=== PATIENT | female | born 2000 | race Two or more races ===

== ENCOUNTER 2020-09-05 13:27 | Emergency (ER) | payer OTHER ==
[~2020-09-05] VITALS: Ht 154.9 cm; Wt 60.7 kg
[2020-09-05 14:17] LABS: BASO % 0.6 % (0.0-1.0); EOS # 1.1 10^3/uL (0.0-0.5); EOS % 15.8 % (0.0-3.0); HEMATOCRIT 39.3 % (36.0-47.0); HEMOGLOBIN 11.8 g/dl (12.0-15.5); LYMPH # 2.5 10^3/uL (1.5-5.0); LYMPH % 35.2 % (24.0-44.0); MEAN CORPUSCULAR HEMOGLOBIN 23.3 pg (27.0-33.0); MEAN CORPUSCULAR VOLUME 77.7 fl (80.0-96.0); MONO # 0.5 10^3/uL (0.0-0.8); MONO % 7.2 % (2.0-8.0); NEUTROPHILS # 2.9 10^3/uL (1.5-8.5); NEUTROPHILS % 41.1 % (36.0-66.0); PLATELET COUNT, AUTOMATED 288 10^3/uL (150-450); RED BLOOD COUNT 5.06 10^6/uL (4.00-5.40)
[2020-09-05 14:45] LABS: BILIRUBIN,DIRECT 0.2 MG/DL (0.0-0.2); BILIRUBIN,TOTAL 0.4 MG/DL (0.2-1.0); TOTAL PROTEIN 7.6 GM/DL (6.4-8.2)
[2020-09-05] MEDS ORDERED: ISOVUE-370 76% 100ML VIAL As Ordered ONE (15:58)
--- NOTE | 2020-09-05 16:22 | REP ---
INDICATION: rlq pain ? cyst. COMPARISON: None TECHNIQUE: Transvesical only patient refused transvaginal imaging FINDINGS: Uterus measures 8.2 x 3.7 x 5.2 cm. The parenchymal echo pattern is within normal limits. The endometrial echo complex measures 1.5 cm in thickness and is within normal limits. There is no free fluid in cul-de-sac. The right ovary measures 4 x 2.1 x 4.3 cm and is within normal limits. Left ovary measures 3.9 x 1.9 x 2.8 cm and is within normal limits. IMPRESSION: Pelvic ultrasonography is within normal limits. <Electronically signed by Ernie Wang > 09/05/20 [id number]
--- NOTE | 2020-09-05 16:28 | REP ---
INDICATION: rlq pain. TECHNIQUE: Standard helical technique after the intravenous administration of 100 cc Isovue 370 FINDINGS: The lung bases are clear. The liver, gallbladder, spleen, pancreas, adrenal glands, and kidneys are within normal limits. The abdominal aorta and para-aortic regions are within normal limits. Limited evaluation of the bowel loops and the mesenteries show no gross abnormalities. The appendix is not definitely visualized, however, there is no abnormal pericecal fatty infiltration or fluid. There is a small amount of free fluid in the pelvis. In the right adnexa there is a wall enhancing slightly irregular low-density structure with fluid surrounding it. This likely represents a decompressing ovarian cyst. The osseous structures are within normal limits. IMPRESSION: Likely decompressing right ovarian cyst as described above with resultant findings. If this does not fit the clinical picture and appendicitis is of of greater concern then I would recommend repeat CT scan after the administration of oral bowel preparatory contrast administration. <Electronically signed by Ernie Wang > 09/05/20 [id number]
[2020-09-05 17:36] VITALS: BP 120/68
--- NOTE | 2020-09-06 14:27 | ED PDOC ---
Post-Departure Follow-Up ct abd/p faxed to [facility] for fu Gordy Hull MD September 06, 2020 14:27
== END 2020-09-05 17:38 | disposition home or self-care (01) ==
LOC: M ED 13:27
DX: N83.201 Unspecified ovarian cyst, right side (principal)
CPT/HCPCS: 36415; 74177; 76856; 80047; 80076; 81001; 83690; 84702; 85025; 93976; 99284; Q9967

== ENCOUNTER 2020-09-08 20:30 | Emergency (ER) | payer OTHER ==
[~2020-09-08] VITALS: Ht 154.9 cm; Wt 60.2 kg
[2020-09-08] MEDS ORDERED: NS 1,000 ML IV ONE (23:00)
[2020-09-08 23:10] LABS: BASO % 0.4 % (0.0-1.0); EOS # 1.3 10^3/uL (0.0-0.5); EOS % 14.6 % (0.0-3.0); HEMATOCRIT 32.8 % (36.0-47.0); LYMPH # 3.5 10^3/uL (1.5-5.0); LYMPH % 38.8 % (24.0-44.0); MEAN CORPUSCULAR HEMOGLOBIN 23.3 pg (27.0-33.0); MEAN CORPUSCULAR HGB CONC 30.5 g/dl (32.0-36.5); MEAN CORPUSCULAR VOLUME 76.5 fl (80.0-96.0); MONO # 0.6 10^3/uL (0.0-0.8); MONO % 6.5 % (2.0-8.0); NEUTROPHILS # 3.6 10^3/uL (1.5-8.5); NEUTROPHILS % 39.5 % (36.0-66.0); PLATELET COUNT, AUTOMATED 257 10^3/uL (150-450); RED BLOOD COUNT 4.29 10^6/uL (4.00-5.40); WHITE BLOOD COUNT 9.1 10^3/uL (4.0-10.0)
[2020-09-08] MEDS ORDERED: ISOVUE-370 76% 100ML VIAL As Ordered ONE (23:25)
[2020-09-09 00:48] VITALS: BP 99/52
== END 2020-09-09 01:02 | disposition home or self-care (01) ==
LOC: M ED 20:30
DX: Z32.01 Encounter for pregnancy test, result positive (principal); R10.31 Right lower quadrant pain
CPT/HCPCS: 80047; 84702; 85025; 96360; 99284; Q9967

== ENCOUNTER 2020-09-20 01:24 | Emergency (ER) | payer OTHER ==
[~2020-09-20] VITALS: Ht 154.9 cm; Wt 60.1 kg
[2020-09-20 01:25] VITALS: BP 126/81
[2020-09-20] MEDS ORDERED: MEDR4PAK PO (12:32)
[2020-09-20] MEDS ORDERED: ZITHTAB PO (12:32)
[2020-09-20] MEDS ORDERED: ALBU8.5H INH (12:32)
== END 2020-09-20 01:45 | disposition left against medical advice (07) ==
LOC: M ED 01:24
DX: Z53.21 Procedure and treatment not carried out due to patient leaving prior to being seen by health care provider (principal)

== ENCOUNTER 2020-09-20 03:55 | Emergency (ER) | payer OTHER ==
[~2020-09-20] VITALS: Ht 154.9 cm; Wt 60.0 kg
[2020-09-20] MEDS ORDERED: predniSONE 20 MG TAB PO ONE (06:10)
[2020-09-20] MEDS: IPRATROPIUM 0.5MG/ALBUTEROL 2.5MG INH SOL UD 3ML (DUONEB) NEB PRN ×3 (06:26→07:45)
[2020-09-20 06:39] LABS: BASO % 0.2 % (0.0-1.0); EOS # 0.6 10^3/uL (0.0-0.5); EOS % 5.2 % (0.0-3.0); HEMATOCRIT 39.5 % (36.0-47.0); HEMOGLOBIN 12.1 g/dl (12.0-15.5); LYMPH # 1.4 10^3/uL (1.5-5.0); LYMPH % 13.1 % (24.0-44.0); MEAN CORPUSCULAR HEMOGLOBIN 24.1 pg (27.0-33.0); MEAN CORPUSCULAR HGB CONC 30.6 g/dl (32.0-36.5); MEAN CORPUSCULAR VOLUME 78.7 fl (80.0-96.0); MONO # 0.7 10^3/uL (0.0-0.8); MONO % 6.8 % (2.0-8.0); NEUTROPHILS % 74.2 % (36.0-66.0); PLATELET COUNT, AUTOMATED 311 10^3/uL (150-450); RED BLOOD COUNT 5.02 10^6/uL (4.00-5.40); WHITE BLOOD COUNT 10.7 10^3/uL (4.0-10.0)
[2020-09-20 07:17] LABS: ALT/SGPT 22 U/L (12-78); BILIRUBIN,TOTAL 0.5 MG/DL (0.2-1.0); BLOOD UREA NITROGEN 6 MG/DL (7-18); CALCIUM LEVEL 8.7 MG/DL (8.5-10.1); CARBON DIOXIDE LEVEL 24 MEQ/L (21-32); CHLORIDE LEVEL 102 MEQ/L (98-107); CREATININE FOR GFR 0.56 MG/DL (0.55-1.30); GLUCOSE, FASTING 92 MG/DL (70-100); POTASSIUM SERUM 4.7 MEQ/L (3.5-5.1); SODIUM LEVEL 134 MEQ/L (136-145); TOTAL PROTEIN 7.7 GM/DL (6.4-8.2)
[2020-09-20 08:59] LABS: RSV AMPLIFICATION NEGATIVE (NEGATIVE)
--- NOTE | 2020-09-20 10:26 | REP ---
INDICATION: SOB, 6 wks preg. COMPARISON: None. TECHNIQUE: Transabdominal and transvaginal scanning are included. FINDINGS: Uterine dimensions are 6.7 x 4.2 x 5.4 cm, normal size. There is a intrauterine gestational sac seen at the level of the mid uterus in the endometrium with the yolk sac but no embryonic pole identified. By mean sac size diameter of 4.9 mm, this would correspond with a 5 week 0 day gestational age estimate. There is a minimal amount of fluid in the cul-de-sac. Normal left ovary is seen measuring 2.9 x 2.0 x 3.0 cm. Left ovarian Doppler flow is normal, resistive index is 0.48. There is a 2.0 cm hypoechoic area in the right ovary consistent with corpus luteum. Right ovarian dimensions are 3.3 x 2.1 x 3.2 cm. It is Doppler flow is normal with resistive index 0.50. IMPRESSION: There is a 5 weeks 0 days size intrauterine gestational sac containing a yolk sac but no identifiable embryonic pole. No significant extra uterine abnormality. Clinical and possibly sonographic follow-up suggested. viability cannot be confirmed at this juncture. <Electronically signed by Yohannes Velasquez > 09/20/20 0136
[2020-09-20] MEDS ORDERED: ISOVUE-370 76% 100ML VIAL As Ordered ONE (11:00)
[2020-09-20] MEDS ORDERED: NS 1,000 ML IV ONE (11:10)
--- NOTE | 2020-09-20 11:29 | REP ---
INDICATION: Tachycardia, SOB, elev d-dimer, eval for PE (consented, 6wks COMPARISON: None. TECHNIQUE: Axial contrast enhanced images from the thoracic inlet to the upper abdomen using pulmonary embolus technique with multiplanar re-formations. 75 ml Isovue 370 intravenous contrast material administered without complication. This CT examination was performed using the following dose reduction techniques: Automated exposure control, adjustment of mA and/or kv according to the patient's size, and use of iterative reconstruction technique. FINDINGS: Satisfactory enhancement of the pulmonary vasculature is achieved and no filling defects are identified to suggest pulmonary embolus. Extremely subtle small foci of airspace disease involving the apical aspect right lower lobe is suggested and should be correlated with physical examination. Lung otoole are otherwise clear/unremarkable. No effusion. No pneumothorax. Tracheobronchial tree is patent. No obvious adenopathy. Mediastinum demonstrates normal thoracic aorta and heart/pericardium. IMPRESSION: No evidence for pulmonary embolus. Extremely subtle airspace disease involving the apical right lower lobe should be correlated with physical examination. <Electronically signed by Rolan Teague > 09/20/20 [id number]
[2020-09-20] MEDS ORDERED: ALBUTEROL 90 MCG/ACT 8GM HFA INHALER INH ONE (11:40)
[2020-09-20] MEDS ORDERED: AZITHROMYCIN INJ 500 MG, VIAL MATE ADAPTER 1 EACH in NS 250 ML IV ONE (11:40)
[2020-09-20] MEDS ORDERED: ALBU8.5H INH (12:32)
[2020-09-20] MEDS ORDERED: ZITHTAB PO (12:32)
[2020-09-20] MEDS ORDERED: MEDR4PAK PO (12:32)
[2020-09-20 13:00] VITALS: BP 109/59
== END 2020-09-20 13:18 | disposition home or self-care (01) ==
LOC: M ED 03:55
DX: O99.511 Diseases of the respiratory system complicating pregnancy, first trimester (principal); J98.01 Acute bronchospasm; J18.9 Pneumonia, unspecified organism; Z3A.00 Weeks of gestation of pregnancy not specified; Z79.899 Other long term (current) drug therapy
CPT/HCPCS: 71275; 76801; 76817; 80053; 85025; 85379; 87631; 93976; 94640; 96365; 99284; J0456; J7512; Q9967

== ENCOUNTER 2021-04-07 13:00 | Outpatient (CLI) | payer OTHER ==
[~2021-04-07] VITALS: Ht 154.9 cm; Wt 79.2 kg
[~2021-04-07 13:00] MED LIST: ALBU8.5H INH; MEDR4PAK PO; ZITHTAB PO
[2021-04-07] MEDS ORDERED: PRENTAB9 PO (13:15)
[2021-04-07 13:18] VITALS: BP 139/89
[2021-04-07] MEDS ORDERED: HOME MED LIST COMPLETE! XX SCH (13:20)
[2021-04-07 13:40] VITALS: BP 127/84
[2021-04-07] MEDS ORDERED: FLUCONAZOLE 50MG TABLET PO ONE (14:30)
== END 2021-04-07 14:41 | disposition home or self-care (01) ==
LOC: M LDO 13:00
PROVIDERS: ATTEND Advanced Practice Midwife
DX: O46.93 Antepartum hemorrhage, unspecified, third trimester (principal); O26.893 Other specified pregnancy related conditions, third trimester; N89.8 Other specified noninflammatory disorders of vagina; Z3A.32 32 weeks gestation of pregnancy
CPT/HCPCS: 59025; 76815; G0378; G0463

== ENCOUNTER 2021-04-09 12:43 | Outpatient (CLI) | payer OTHER ==
[~2021-04-09] VITALS: Ht 154.9 cm; Wt 77.7 kg
[~2021-04-09 12:43] MED LIST changes: +PRENTAB9 PO
[2021-04-09 13:05] VITALS: BP 116/70
[2021-04-09] MEDS ORDERED: HOME MED LIST COMPLETE! XX SCH (13:10)
[2021-04-09 15:11] VITALS: BP 118/70
== END 2021-04-09 16:30 | disposition home or self-care (01) ==
LOC: M LDO 12:43
PROVIDERS: ATTEND Registered Nurse
DX: O46.93 Antepartum hemorrhage, unspecified, third trimester (principal); O44.00 Complete placenta previa NOS or without hemorrhage, unspecified trimester; Z3A.34 34 weeks gestation of pregnancy
CPT/HCPCS: 59025; 76815; 76817; 76819; 76820; G0378; G0463

== ENCOUNTER 2021-04-14 00:37 | Outpatient (CLI) | payer OTHER ==
--- NOTE | 2021-04-21 17:26 | IPNPDOC ---
Text Note Date of Service The patient was seen on 04/14/21. NOTE Coco Allred 20yo G1 around 33 weeks presents to labor and delivery for loss of mucous plug. Denies vaginal bleeding, loss of fluid, contractions. Endorses positive movement. Vitals stable and within normal limits. 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 Discussed with patient and spouse, all questions answered and they indicated understanding. Keon Calero, this note was written 2020 and is my best recollection of the events of that visit as the handwritten note from this visit was lost in the scanning process. KEON CALERO DO Apr 21, 2021 17:25
== END 2021-04-14 02:00 | disposition home or self-care (01) ==
LOC: M LDO 00:37
PROVIDERS: ATTEND Obstetrics & Gynecology
DX: O26.893 Other specified pregnancy related conditions, third trimester (principal); N89.8 Other specified noninflammatory disorders of vagina; Z3A.33 33 weeks gestation of pregnancy
CPT/HCPCS: 59025; G0378; G0463

== ENCOUNTER 2021-04-17 10:25 | Inpatient (IN) | payer OTHER ==
[2021-04-17] VITALS (16 sets, daily range): BP systolic 102–124; BP diastolic 61–88
[~2021-04-17] VITALS: Ht 154.9 cm; Wt 78.3 kg
[2021-04-17] MEDS ORDERED: PENICILLIN G POTASSIUM IV 5 MU in D5W MINI-BAG PLUS 100 ML IV STA (12:01)
[2021-04-17] MEDS ORDERED: OXYTOCIN INJ 10 UNITS/ML VIAL (J2590) IV PRN (12:05)
[2021-04-17] MEDS ORDERED: OXYTOCIN DRIP 30 UNITS in IV 1 EA IV PRN (12:05)
[2021-04-17] MEDS ORDERED: METHYLERGONOVINE MALEATE 0.2 MG/ML VIAL (J2210) IM PRN (12:05)
[2021-04-17] MEDS ORDERED: MAGNESIUM *L&D* 4GM/100ML BAG (40MG/ML) IV ONE (12:15)
[2021-04-17] MEDS ORDERED: LACTATED RINGER'S 1000 ML IV ONE (12:30)
[2021-04-17 12:46] LABS: HEMATOCRIT 38.4 % (36.0-47.0); HEMOGLOBIN 12.8 g/dl (12.0-15.5); MEAN CORPUSCULAR HEMOGLOBIN 28.6 pg (27.0-33.0); MEAN CORPUSCULAR HGB CONC 33.3 g/dl (32.0-36.5); MEAN CORPUSCULAR VOLUME 85.7 fl (80.0-96.0); PLATELET COUNT, AUTOMATED 204 10^3/uL (150-450); RED BLOOD COUNT 4.48 10^6/uL (4.00-5.40); WHITE BLOOD COUNT 8.3 10^3/uL (4.0-10.0)
[2021-04-17] MEDS: BETAMETHASONE SOLUSPAN 6MG/ML 5ML VIAL (J0702 PER 3MG) IM SCH (13:23)
[2021-04-17] MEDS: MAG Sulf (OBGYN) 20GM/500ML 20,000 MG in IV 1 EA IV SCH (13:23)
--- NOTE | 2021-04-17 13:26 | REP ---
INDICATION: SROM AT 33.5 WEEKS, WEIGHT POSITION CERVICAL LENGTH COMPARISON: 04/09/2021 TECHNIQUE: Transabdominal obstetrical ultrasound with color Doppler evaluation. FINDINGS: Examination demonstrates a single live intrauterine in cephalic presentation. motion is identified by technologist. Placenta is noted posterior, grade 1 and low lying approximately 17 mm from the closed internal os. Cervix measures 3.1 cm in length and appears closed.. Selected gestational age: 33 weeks 5 days with STACY 05/31/2021. Gestational age by current measurements 31 weeks 5 days with STACY 06/14/2021. FHR equals 133 beats per minute. Estimated weight 1750 grams (less than 3rdpercentile). ARABELLA: 9.9 cm Umbilical artery SD ratio: 3.81 (1.75-3.71) IMPRESSION: 1. Single live intrauterine in cephalic presentation demonstrating less than expected interval growth. 2. Low lying posterior grade 1 placenta 17 mm from the closed internal os. <Electronically signed by Rolan Teague > 04/17/21 [id number]
[2021-04-17] MEDS: PENICILLIN G POTASSIUM IV 2.5 MU in IV 1 EA IV SCH ×2 (16:57→21:05)
--- NOTE | 2021-04-17 21:31 | HPEPDOC ---
Obstetrical History & Physical General Date of Admission Item Value Date Time White Blood Count 8.3 10^3/uL 04/17/21 1230 Red Blood Count 4.48 10^6/uL 04/17/21 1230 Hemoglobin 12.8 g/dl 04/17/21 1230 Hematocrit 38.4 % 04/17/21 1230 Mean Corpuscular Volume 85.7 fl 04/17/21 1230 Mean Corpuscular Hemoglobin 28.6 pg 04/17/21 1230 Mean Corpuscular Hemoglobin Concent 33.3 g/dl 04/17/21 1230 Red Cell Distribution Width 12.2 % 04/17/21 1230 Platelet Count 204 10^3/uL 04/17/21 1230 Apr 17, 2021 at 12:05 NAME: LUL ORDOÑEZ DATE OF : 2000 AGE: 20 SEX: F REPORT #: [id number] ROOM: [facility] TECHNOLOGIST: [facility] DOCTOR: Noah Lomeli MD Ordered for Date&Time: 04/17/21 1212 cc: [~ rep ct ivnm] Service Date&Time: 04/17/21 1259 EXAMINATION REQUESTED: OBS FOLL UP OR REPEAT EACH GES REASON FOR PATIENT VISIT: LABOR CHECK. REASON FOR EXAM/COMMENT: SROM AT 33.5 WEEKS, WEIGHT POSITION CERVICAL LENGTH INDICATION: SROM AT 33.5 WEEKS, WEIGHT POSITION CERVICAL LENGTH COMPARISON: 04/09/2021 TECHNIQUE: Transabdominal obstetrical ultrasound with color Doppler evaluation. FINDINGS: Examination demonstrates a single live intrauterine in cephalic presentation. motion is identified by technologist. Placenta is noted posterior, grade 1 and low lying approximately 17 mm from the closed internal os. Cervix measures 3.1 cm in length and appears closed.. Selected gestational age: 33 weeks 5 days with STACY 05/31/2021. Gestational age by current measurements 31 weeks 5 days with STACY 06/14/2021. FHR equals 133 beats per minute. Estimated weight 1750 grams (less than 3rdpercentile). ARABELLA: 9.9 cm Umbilical artery SD ratio: 3.81 (1.75-3.71) IMPRESSION: 1. Single live intrauterine in cephalic presentation demonstrating less than expected interval growth. 2. Low lying posterior grade 1 placenta 17 mm from the closed internal os. <Electronically signed by Rolan Teague > 04/17/21 1322 DD: Rolan Teague MD 04/17/21 1320 DT: SHIREEN 04/17/21 1322 DS: MERVIN 04/17/21 1320 04/17/21 1320 Primary Care Physician: Noah Lomeli MD History of Present Illness 04/17/21 20 yo admitted with history of srom clear fluid no contractions no vaginal bleeding lmp 08/10/20 [facility]/2021 at 33 .6 weeks. unable to find patients ob chart. Chief Complaint: LOF, pre-term Information Provided By: Patient Age: 20 : 1 Term: 0 Pre-term: 0 Abortions: 0 Livin Care Care: Good Care Number of Visits: 5 Dating Final EDC: May 31, 2021 Final EDC for Daily Update: May 31, 2021 Final EDC by: LMP LMP: Aug 10, 2020 1st Trimester Date: Oct 15, 2020 Weeks + Days: 7.3 Estimated Date of Confinement: May 31, 2021 EGA at Admission: 33.6 Antepartum Course Diagnos(e)s srom no contractions noted Height (inches): 61 Pre- weight (lbs.): 130 Admission Weight (lbs.): 162 Change in Weight (lbs.): 32 Past Medical History Past Obstetrical History : Past Obstetrical History: [employer] History: No pertinent history Past Medical History Medical History non contributory Surgical History: [place] teeth Family History Significant Family History: Hypertension (diabetes type 2, ovarian cancer) Family History mother htn diabetes type 2 mgm ovarian cancer Social History Social history to ad good support no violence Marital Status: Family situation: Spouse/partner home Psychosocial History: No pertinent psych hx * Smoker: non-smoker Alcohol: Denies Drugs: denies Abuse Violence Screening Have you been hit/kicked/slapp: No Have you been sexually assault: No Imunizations Tdap status: current Influenza Status: current Allergies Coded Allergies: No Known Allergies (Unverified , 09/05/20) Medications Scheduled No.137/Iron/Folic Acd ( Vitamin Tablet) 1 Each Tablet, 1 TAB PO DAILY Physical Examination Physical Examination GENERAL: Alert and oriented times three. BREAST: . ABDOMEN: Gravid and non-tender to touch. FETUS: Is vertex (VTX) by sterile vaginal examination (SVE), fetus is vertex (VTX) by Albert.positive pooling fluid Nitrazine and fern positive HEART RATE: Regular rate and rhythm. LUNGS: Clear to auscultation (CTA). EXTREMITIES: No edema. No clonus. Deep tendon reflexes (DTRs) + . Other physical findings atraumatic neck full range motions perrla chest clear to bases no rales no rhonchi no sob no chest pain. heart sounds normal mo murmur pulses equal full bilaterally. abdomen soft bowel sounds sterile speculum vertex os open hair visible no blood pooling posterior vagina no rashes lesions puritis no myalgia no arthralgia no n/v/d/c/f no urgency no frequency Vital Signs/I&O Vital Signs Date Time Temp Pulse Resp B/P (MAP) Pulse Ox O2 Delivery O2 Flow Rate FiO2 04/17/21 19:55 97.3 87 124/74 (91) 04/17/21 18:53 18 Laboratory Data 24H LABS Laboratory Tests 2 04/17/21 12:19: Serology Scanned Report Hepatitis B Testing 04/17/21 12:30: Nucleated Red Blood Cells % (auto) 0.0 04/17/21 12:38: Coronavirus (COVID-19)(PCR) NEGATIVE CBC/BMP Laboratory Tests 04/17/21 12:30 Microbiology Microbiology 04/17/21 Group B Streptococcus Screen (NAGA), Received Pending Pertinent Laboratoy Data Blood Type: B+ RBC Antibody Screen: Negative HIV: Negative Hepatitis B: Negative Rapid Plasma Reagin: Nonreactive Rubella: Immune Varicella: Immune Chlamydia/Gonorrhea: Negative Group B Streptococcus: Unknown Cystic Fibrosis: Negative Anatomy Ultrasound Placenta Location: Posterior Normal Anatomy: Yes Placenta Previa: Yes (resolved with 20 week and later us ) Steroid Therapy Steroid Therapy: Yes Date #1: Apr 17, 2021 Date #2: Apr 18, 2021 Reason prom at 33.6 weeks Vaginal Examination Dilation: 2cm Effacement: 30% Station: -3 Cervical Consistency: Firm Cervical Position: Middle Presentation: Cephalic presentation Assessment Heart Rate (FHR): 140 Variability: Moderate Accelerations: Present Decelerations: None Tocometer Contractions: No Assessment/Plan Assessment 20 year-old (G)1 para (P)0 at 33.6 weeks by 7.3 -week ultrasound. Presents to Labor and Delivery (L&D) .srom confirmed Plan Admit and orient. Conservation Coordinator and consent. Diet: carri Group B Streptococcus (GBS) [negative].unknown treated Labs and intravenous (IV) per unit protocol. Counseled on mgso4, steroids antibiotics . Lactated Ringers (LR): Bolus 1000 mL, then at [125 mL/hr. Anticipate [normal spontaneous delivery ()]. C-S as appropriate. Labor and Delivery Counseling reviewed plan of care admission preparation for early term delivery, steroids to enhance lung maturity, antibiotics for gbs coverage, mgso4 for neuro c overage . all takes 24 hours to optimize reviewed plan with neonatology nurse reviewed plan of care in nicu. cbc x 3 days re wbc. Noah Lomeli MD Apr 17, 2021 21:26
[2021-04-18] VITALS (28 sets, daily range): BP systolic 92–128; BP diastolic 50–83
[2021-04-18] MEDS: PENICILLIN G POTASSIUM IV 2.5 MU in IV 1 EA IV SCH ×2 (01:02→05:03)
[2021-04-18 06:03] LABS: HEMOGLOBIN 13.2 g/dl (12.0-15.5); MEAN CORPUSCULAR HEMOGLOBIN 28.2 pg (27.0-33.0); MEAN CORPUSCULAR HGB CONC 32.2 g/dl (32.0-36.5); MEAN CORPUSCULAR VOLUME 87.6 fl (80.0-96.0); PLATELET COUNT, AUTOMATED 228 10^3/uL (150-450); RED BLOOD COUNT 4.68 10^6/uL (4.00-5.40); WHITE BLOOD COUNT 12.2 10^3/uL (4.0-10.0)
[2021-04-18] MEDS ORDERED: AZITHROMYCIN 250MG TABLET PO ONE (08:00)
--- NOTE | 2021-04-18 08:35 | IPNPDOC ---
Obstetrical Progress Note Date of Service Apr 18, 2021 Subjective Pt feeling comfortable, denies feeling contractions. Objective Vital Signs Date Time Temp Pulse Resp B/P (MAP) Pulse Ox O2 Delivery O2 Flow Rate FiO2 04/18/21 07:00 97.0 86 16 107/68 (81) Room Air Assessment Heart Rate (FHR): 125 Variability: Moderate Accelerations: Present ([id number] only) Decelerations: None Heart Rate Tracing: Category I Tocometer Contractions: Yes Frequency: other (q7-11 min, pt denies feeling) Duration: greater than 60 seconds Strength: palpated as mild, resting tone palp/soft Assessment and Plan Age: 20 : 1 Term: 0 Pre-term: 0 Abortions: 0 Livin EGA at Admission: 0 Weeks & Days 33+6 Status: Reassuring Group B Streptococcus: Unknown Anticipate: Vaginal Delivery Additional Comments Consulted with Dr. Calero for shift change. He recommended a change in medication for antibiotics for prophylaxis. Additionally instructed to discontinue magnesium and initiate procardia q 4hr for tocolysis during steroid administration. Counseling for plan of care reviewed with pt and spouse. Questions asked and answered about status and options for care. Lr@125ml/hr, magnesium sulfate discontinued, initiate procardia 10mg q4 hr, continue antibiotics with directed changes, continuous efm x2, monitor for change in or maternal status VIRY CARUSO CNM Apr 18, 2021 08:35
[2021-04-18] MEDS: LR 1,000 ML IV SCH ×5 (08:36→22:13)
[2021-04-18] MEDS: NIFEdipine 10 MG CAP PO SCH ×4 (08:37→20:00)
[2021-04-18] MEDS: MAG Sulf (OBGYN) 20GM/500ML 20,000 MG in IV 1 EA IV SCH (08:41)
[2021-04-18] MEDS ORDERED: PRENATAL VITAMINS CHEWABLE TABLET PO SCH (09:00)
[2021-04-18] MEDS: AMPICILLIN SOD 2 GM in D5W MINI-BAG PLUS 100 ML IV SCH ×3 (09:07→20:57)
[2021-04-18] MEDS: BETAMETHASONE SOLUSPAN 6MG/ML 5ML VIAL (J0702 PER 3MG) IM SCH (13:28)
--- NOTE | 2021-04-18 16:15 | IPNPDOC ---
Obstetrical Progress Note Date of Service Apr 18, 2021 Subjective Pt states feeling well, states that cramping has resolved with current medications and hydration. Denies bleeding. Objective Vital Signs Date Time Temp Pulse Resp B/P (MAP) Pulse Ox O2 Delivery O2 Flow Rate FiO2 04/18/21 12:34 108/71 04/18/21 12:00 97.9 105 04/18/21 07:00 16 Room Air Assessment Heart Rate (FHR): 135 Variability: Minimal to moderate Accelerations: Positive (10 x 10) Decelerations: None Heart Rate Tracing: Category I Tocometer Contractions: No (contractions have reolved with nifedipine and fluids) Strength: resting tone palp/soft Assessment and Plan Age: 20 : 1 Term: 0 Pre-term: 0 Abortions: 0 Livin Weeks & Days 33+6 Status: Reassuring Group B Streptococcus: Unknown Anticipate: Vaginal Delivery Additional Comments Continue LR @125ml/hr, 10mg po nifedipine q4hr until steroid complete, antibiotics for prophylaxis, continuous efm x2, monitor for change in or maternal status Transfer care for change of shift. VIRY CARUSO CNM Apr 18, 2021 16:15
--- NOTE | 2021-04-18 19:56 | IPNPDOC ---
Text Note Date of Service The patient was seen on 04/18/21. NOTE I am writing this note at 1940 however I saw her twice today and discussed plan of care as summarized below: Coco Allred is a 20yo G1 at 33+6 admitted for prelabor rupture of membranes. She is currently on azithromycin/ampicillin for latency antibiotics and nifedipine for tocolysis. She has received two doses of betamethasone, the second around 1300 today. Her cervix on admission was visually 2cm dilated. afebrile, normotensive heart regular rate nonlabored breathing abdomen soft, nontender, nondistended heart tracing category I, 130, moderate, +accels, no decels Her admission ultrasound revealed an estimated weight of 3%, giving a diagnosis of growth restriction. The S/D ratio was slightly elevated (greater than 3). Her placenta is 17mm from the internal os via ultrasound, vaginal delivery may be attempted. I discussed that from 34-37 weeks both immediate delivery and expectant management are appropriate choices. Immediate delivery was associated with increased respiratory distress, increased need for ventilation, and increased NICU stay (4 days vs. 2 days.); expectant management however was associated maternally with increased hemorrhage and infection but decreased rate. The 2020 [facility] Consult Series, Diagnosis and Management of Growth Restriction advises for estimated weight between 3%-10% and normal umbilical artery Doppler, delivery between 38+0 and 39+0 weeks gestation. For abnormal dopplers, defined as absent or reversed end diastolic flow, earlier delivery is recommended. these findings were discussed with the patient and her questions answered. She is not sure whether she would like delivery vs. expectant management. I explained that she does not need to decide immediately. She will be steroid complete around 1300 tomorrow and delivery can be readdressed at that time. -continue nifedipine until 1300 [id number] -IV ampicilin 2g q6h for 48 hours, than oral amoxicillin 250mg q8h -continuous monitoring at least while on nifedipine, can have shower breaks -regular diet -monitor for signs of infection -at this time, expectant management; indications for delivery include abnormal testing, clinical intraamniotic infection, significant placental abruption VS,Fishbone, I+O VS, Fishbone, I+O Laboratory Tests 04/18/21 05:22 Vital Signs Date Time Temp Pulse Resp B/P (MAP) Pulse Ox O2 Delivery O2 Flow Rate FiO2 04/18/21 19:00 110 109/71 (84) 04/18/21 16:38 98.4 16 04/18/21 07:00 Room Air I&O- Last 24 Hours up to 6 AM 04/18/21 06:00 Intake Total 2380 ml Output Total 2800 ml Balance -420 ml KEON AN DO Apr 18, 2021 19:56
[2021-04-18] MEDS: PRENATAL VITAMINS CHEWABLE TABLET PO SCH (20:57)
[2021-04-19] VITALS (24 sets, daily range): BP systolic 86–143; BP diastolic 50–87
[2021-04-19] MEDS: NIFEdipine 10 MG CAP PO SCH ×4 (00:04→12:04)
[2021-04-19] MEDS: AMPICILLIN SOD 2 GM in D5W MINI-BAG PLUS 100 ML IV SCH ×4 (03:02→20:58)
[2021-04-19] MEDS: LR 1,000 ML IV SCH ×3 (04:03→21:00)
--- NOTE | 2021-04-19 07:03 | IPNPDOC ---
Text Note Date of Service The patient was seen on 04/19/21. NOTE Coco Allred is a 20yo G1 at 34+0 admitted for prelabor rupture of membranes. She is currently on azithromycin/ampicillin for latency antibiotics and nifedipine for tocolysis. She has received two doses of betamethasone, the second around 1300 [id number]. Her cervix on admission was visually 2cm dilated. No acute events overnight. Denies vaginal bleeding, feels occasional co ntractions. Endorses positive movement. afebrile, normotensive heart regular rate nonlabored breathing abdomen soft, nontender, nondistended heart tracing category I, 130, moderate, +accels, no decels, occasional contractions Her admission ultrasound revealed an estimated weight of 3%, giving a diagnosis of growth restriction. The S/D ratio was slightly elevated (greater than 3). Her placenta is 17mm from the internal os via ultrasound, vaginal delivery may be attempted. I discussed that from 34-37 weeks both immediate delivery and expectant management are appropriate choices. Immediate delivery was associated with increased respiratory distress, increased need for ventilation, and increased NICU stay (4 days vs. 2 days.); expectant management however was associated maternally with increased hemorrhage and infection but decreased rate. The 2020 [facility] Consult Series, Diagnosis and Management of Growth Restriction advises for estimated weight between 3%-10% and normal umbilical artery Doppler, delivery between 38+0 and 39+0 weeks gestation. For abnormal dopplers, defined as absent or reversed end diastolic flow, earlier delivery is recommended. these findings were discussed with the patient and her questions answered. She is not sure whether she would like delivery vs. expectant management. I explained that she does not need to decide immediately. She will be steroid complete around 1300 tomorrow and delivery can be readdressed at that time. -continue nifedipine until 1300 [id number] -IV ampicilin 2g q6h for 48 hours total (started 0900 [id number]), than transition to oral amoxicillin 250mg q8h for 5 days (7 days total of latency antibiotics) -continuous monitoring at least while on nifedipine, can have shower breaks -regular diet -monitor for signs of infection -at this time, expectant management; indications for delivery include abnormal testing, clinical intraamniotic infection, significant placental abruption -care will be transferred to Dr. Lomeli at 0730 [id number] Keon Calero DO VS,Fishbone, I+O VS, Fishbone, I+O Vital Signs Date Time Temp Pulse Resp B/P (MAP) Pulse Ox O2 Delivery O2 Flow Rate FiO2 04/19/21 06:00 97.9 72 16 100/55 (70) 04/18/21 07:00 Room Air I&O- Last 24 Hours up to 6 AM 04/19/21 05:59 Intake Total 3100 ml Output Total 750 ml Balance 2350 ml KEON CALERO DO Apr 19, 2021 07:03
[2021-04-19 07:26] LABS: HEMOGLOBIN 12.5 g/dl (12.0-15.5); MEAN CORPUSCULAR HEMOGLOBIN 28.7 pg (27.0-33.0); MEAN CORPUSCULAR HGB CONC 32.9 g/dl (32.0-36.5); MEAN CORPUSCULAR VOLUME 87.2 fl (80.0-96.0); PLATELET COUNT, AUTOMATED 208 10^3/uL (150-450); RED BLOOD COUNT 4.36 10^6/uL (4.00-5.40); WHITE BLOOD COUNT 13.5 10^3/uL (4.0-10.0)
--- NOTE | 2021-04-19 10:05 | IPNPDOC ---
Obstetrical Progress Note Date of Service Apr 19, 2021 Subjective Pt states feeling comfortable with occasional mild cramping. Requesting to shower. Objective Vital Signs Date Time Temp Pulse Resp B/P (MAP) Pulse Ox O2 Delivery O2 Flow Rate FiO2 04/19/21 07:48 97.3 71 139/76 (97) 04/19/21 06:00 16 04/18/21 07:00 Room Air Assessment Heart Rate (FHR): 130 Variability: Moderate Accelerations: Positive (10 x 10 accels with occasional 15 x 15 accels) Decelerations: None Heart Rate Tracing: Category I Tocometer Contractions: Yes Frequency: other (occasional, no regular pattern) Duration: less than 60 seconds Strength: palpated as mild, resting tone palp/soft Assessment and Plan Age: 20 : 1 Term: 0 Pre-term: 0 Abortions: 0 Livin Weeks & Days 34+0 Status: Reassuring Group B Streptococcus: Unknown Anticipate: Vaginal Delivery Additional Comments Care assumed at [address] Calero. Pt ambulating well to BR and preparing to shower at time of documentation. Saline lock IV for shower, after shower, resume LR @125 ml /hr and continuous efm x 2, continue antibiotics for prophylaxis, continue nifedipine until steroid complete, monitor for change in or maternal status, continue expectant management for PPROM VIRY CARUSO CNM Apr 19, 2021 10:05
--- NOTE | 2021-04-19 14:05 | IPNPDOC ---
Obstetrical Progress Note Date of Service Apr 19, 2021 Objective Vital Signs Date Time Temp Pulse Resp B/P (MAP) Pulse Ox O2 Delivery O2 Flow Rate FiO2 04/19/21 13:00 89 107/77 (87) 04/19/21 12:00 97.9 04/19/21 06:00 16 04/18/21 07:00 Room Air Assessment Heart Rate (FHR): 130 Variability: Minimal to moderate Accelerations: Positive (10 x 10 accels with occasional 15 x 15) Decelerations: None Heart Rate Tracing: Category I Tocometer Contractions: Yes Frequency: irregular Strength: resting tone palp/soft Assessment and Plan Age: 20 : 1 Term: 0 Pre-term: 0 Abortions: 0 Livin Status: Reassuring Group B Streptococcus: Unknown Anticipate: Vaginal Delivery Additional Comments Pt questions about plan of care, expectant management, and options for pain medication reviewed. Pt expressed understanding and desire to continue with expectant management. lr @125ml/hr, continuous efm x2, continue antibiotics for prophylaxis, discontinue nifedipine, monitor for change in or maternal status, expectant management for PPROM, consult OB carton stapler as indicated VIRY CARUSO CNM Apr 19, 2021 14:05
[2021-04-19] MEDS: PRENATAL VITAMINS CHEWABLE TABLET PO SCH (20:58)
[2021-04-20] VITALS (18 sets, daily range): BP systolic 101–142; BP diastolic 60–91
[2021-04-20] MEDS: AMPICILLIN SOD 2 GM in D5W MINI-BAG PLUS 100 ML IV SCH (03:04)
[2021-04-20] MEDS: LR 1,000 ML IV SCH ×2 (05:24→13:00)
--- NOTE | 2021-04-20 06:49 | IPNPDOC ---
Text Note Date of Service Vital Signs Label Value Date Time Blood Pressure Assessment 142/91 (108) 04/20/21 0300 Source Automatic Cuff (NIBP) Respiratory Rate 18 bpm 04/20/21 0300 Pulse 78 04/20/21 0300 Patient Temperature 97.9 degrees F 04/20/21 0300 Temperature Source Temporal 04/20/21 0300 Pulse 64 04/20/21 0200 Blood Pressure Assessment 132/67 (88) 04/20/21 0200 Source Automatic Cuff (NIBP) Blood Pressure Assessment 128/74 (92) 04/20/21 0102 Source Automatic Cuff (NIBP) Pulse 64 04/20/21 010 Patient Temperature 97.8 degrees F 04/20/21 010 Temperature Source Temporal 04/20/21 010 The patient was seen on 04/20/21. NOTE 04/20/21 REVIEW STATUS PATIENT NO COMPLAINT HAD GOOD DAY NO CONTRACTIONS AFEBRILE LEAKING CLEAR FLUID NO ODOR NO BLOODY DISCHARGE. PLAN TO CONTINUE ORAL ANTIBIOTICS , REPEAT CBC. CHANGE MONITOR TO Q 4 H SALINE LOCK IV . PATIENT AGREES WITH PLAN OF CARE VS,[place], I+O VS, Fishbone, I+O Vital Signs Date Time Temp Pulse Resp B/P (MAP) Pulse Ox O2 Delivery O2 Flow Rate FiO2 04/20/21 03:00 97.9 78 18 142/91 (108) 04/18/21 07:00 Room Air I&O- Last 24 Hours up to 6 AM 04/20/21 06:00 Intake Total 3608 ml Balance 3608 ml Noah Lomeli MD Apr 20, 2021 06:48
--- NOTE | 2021-04-20 09:10 | IPNPDOC ---
Obstetrical Progress Note Date of Service Apr 20, 2021 Subjective Pt states feeling more frequent patterns of contractions, denies pain. Objective Vital Signs Date Time Temp Pulse Resp B/P (MAP) Pulse Ox O2 Delivery O2 Flow Rate FiO2 04/20/21 03:00 97.9 78 18 142/91 (108) 04/18/21 07:00 Room Air Assessment Heart Rate (FHR): 135 Variability: Minimal to moderate Accelerations: Positive (10 x 10) Decelerations: None Heart Rate Tracing: Category I Tocometer Contractions: Yes Frequency: irregular (Ipatterns of contracions ) Duration: greater than 60 seconds Strength: palpated as mild, resting tone palp/soft Assessment and Plan Age: 20 : 1 Term: 0 Pre-term: 0 Abortions: 0 Livin Weeks & Days 34+2 Status: Reassuring Group B Streptococcus: Negative Anticipate: Vaginal Delivery Additional Comments Assumed care from Dr. Lomeli at 0730. Pt education reviewed on normal expectations, plan of care, PPROM, expectant management, reassuring signs of wellbeing, and reasons to call. Saline lock IV, continuous efm, q 4 hr vital signs, expectant management, monitor for change in or maternal status, consult OBGYN christian education director as indicated. VIRY CARUSO CNM Apr 20, 2021 09:10
[2021-04-20 11:35] LABS: HEMATOCRIT 38.3 % (36.0-47.0); HEMOGLOBIN 12.4 g/dl (12.0-15.5); MEAN CORPUSCULAR HEMOGLOBIN 28.2 pg (27.0-33.0); MEAN CORPUSCULAR HGB CONC 32.4 g/dl (32.0-36.5); PLATELET COUNT, AUTOMATED 195 10^3/uL (150-450)
[2021-04-20] MEDS: PRENATAL VITAMINS CHEWABLE TABLET PO SCH (21:00)
[2021-04-21] VITALS (11 sets, daily range): BP systolic 98–139; BP diastolic 61–92
--- NOTE | 2021-04-21 06:37 | IPNPDOC ---
Text Note Date of Service The patient was seen on 04/21/21. NOTE 20 yo at 34+2 weeks gestation admitted for , prelabor rupture of membranes a few days ago. She has completed a course of BTMZ and received three days worth of antibiotics. She has opted for expectant management rather than immediate delivery at this time. She has been under continuous FHR monitoring on labor and delivery. No acute events overnight. Her nurse reported that she has not complained of pain, fevers/chills, SOB, or bleeding. At the bedside Coco is sleeping soundly. I did not wake her up. Vitals - VSS, afebrile (tmax 98.6), normotensive, non tachycardic General - Laying in bed, sleeping soundly FHR tracing - Mostly Cat I with moderate variability, +accels. Occasional variable decels, not deep and not persistent. Ctx intermittent but not felt by patient. Labs: Last WBC count 11.0 on 20Apr2021 Coco is stable at this time without any evidence of infection. status remains reassuring. She has been counseled thoroughly regarding her option of proceeding with delivery or continuing with expectant management. Can continue with expectant management at this time per her wishes. Will check CBC this AM. Continue FHR monitoring as ordered. Radha Cali, I+O Radha MCCRAY, I+O Laboratory Tests 04/20/21 11:11 Vital Signs Date Time Temp Pulse Resp B/P (MAP) Pulse Ox O2 Delivery O2 Flow Rate FiO2 04/21/21 06:12 97.9 68 18 113/72 (86) 04/18/21 07:00 Room Air I&O- Last 24 Hours up to 6 AM 04/21/21 05:59 Intake Total 187.5 ml Balance 187.5 ml ABENA ADAME DO Apr 21, 2021 06:37
[2021-04-21 08:06] LABS: HEMATOCRIT 38.1 % (36.0-47.0); HEMOGLOBIN 12.6 g/dl (12.0-15.5); MEAN CORPUSCULAR HEMOGLOBIN 28.3 pg (27.0-33.0); MEAN CORPUSCULAR HGB CONC 33.1 g/dl (32.0-36.5); MEAN CORPUSCULAR VOLUME 85.6 fl (80.0-96.0); PLATELET COUNT, AUTOMATED 184 10^3/uL (150-450); RED BLOOD COUNT 4.45 10^6/uL (4.00-5.40); WHITE BLOOD COUNT 10.5 10^3/uL (4.0-10.0)
--- NOTE | 2021-04-21 09:31 | IPNPDOC ---
Text Note Date of Service The patient was seen on 04/21/21. NOTE Acceptance of Care Coco Allred is a 20 yo at 34+2 weeks gestation well known to me admitted for , prelabor rupture of membranes a few days ago. She has completed a course of BTMZ and received three days worth of antibiotics. She has opted for expectant management rather than immediate delivery at this time. She was seen eating breakfast in her room. Denies vaginal bleeding, contractions. Endorses positive movement. Vitals - afebrile, normotensive General - a&o x3, no acute distress nonlabored breathing abdomen gravid, soft, nontender negative calf tenderness bilaterally FHR tracing - Mostly Cat I with moderate variability, +accels. Occasional variable decels, not deep and not persistent. Ctx intermittent but not felt by patient. Labs: WBC 23DEC 10.5, previously 11.0 on 22DEC Coco Allred is stable at this time without any evidence of infection. status remains reassuring. She has been counseled thoroughly regarding her option of proceeding with delivery or continuing with expectant management. Can continue with expectant management at this time per her wishes. Discussed option of twice daily nonstress tests in lieu of continuous monitoring and she agrees with twice daily nonstress tests. Plan: d/c continuous monitoring start BID NSTs regular diet monitor for signs/symptoms of infection Keon Calero DO VS,Radha, I+O VS, Radha, I+O Laboratory Tests 04/20/21 11:11 04/21/21 07:57 Vital Signs Date Time Temp Pulse Resp B/P (MAP) Pulse Ox O2 Delivery O2 Flow Rate FiO2 04/21/21 08:06 64 130/84 (99) 04/21/21 08:05 97.5 16 04/18/21 07:00 Room Air I&O- Last 24 Hours up to 6 AM 04/21/21 06:00 Intake Total 187.5 ml Balance 187.5 ml KEON CALERO DO Apr 21, 2021 09:31
[2021-04-21] MEDS: PRENATAL VITAMINS CHEWABLE TABLET PO SCH (23:05)
--- NOTE | 2021-04-22 07:16 | IPNPDOC ---
Text Note Date of Service The patient was seen on 04/22/21. NOTE Coco Allred is a 20 yo at 34+3 weeks gestation well known to me admitted for , prelabor rupture of membranes a few days ago. She has completed a course of BTMZ and received three days worth of antibiotics. She has opted for expectant management rather than immediate delivery at this time. She was sleeping this morning when I entered the room and I did not wake her up. Vitals - afebrile, normotensive General - asleep nonlabored breathing 23DEC 2200 NST reactive, no contractions Labs: WBC 23DEC 10.5, previously 11.0 on 22DEC Coco Allred is stable at this time without any evidence of infection. status remains reassuring. She has been counseled thoroughly regarding her option of proceeding with delivery or continuing with expectant management. Can continue with expectant management at this time per her wishes. Plan: BID NSTs regular diet monitor for signs/symptoms of infection Keon Calero DO VS,Radha, I+O VS, Radha, I+O Laboratory Tests 04/21/21 07:57 Vital Signs Date Time Temp Pulse Resp B/P (MAP) Pulse Ox O2 Delivery O2 Flow Rate FiO2 04/21/21 22:55 98.3 71 16 101/74 (83) 04/18/21 07:00 Room Air KEON CALERO DO Apr 22, 2021 07:16
[2021-04-22 07:33] VITALS: BP 127/77
[2021-04-22 11:42] VITALS: BP 118/66
[2021-04-22 15:00] VITALS: BP 120/77
[2021-04-22 19:11] VITALS: BP 113/75
[2021-04-22 23:04] VITALS: BP 109/57
[2021-04-23 02:54] VITALS: BP 117/67
[2021-04-23 07:22] VITALS: BP 110/57
[2021-04-23] MEDS: PRENATAL VITAMINS CHEWABLE TABLET PO SCH ×2 (09:14→21:43)
[2021-04-23 11:03] VITALS: BP 117/70
[2021-04-23 15:23] VITALS: BP 119/64
[2021-04-23 19:07] VITALS: BP 132/71
[2021-04-23 23:05] VITALS: BP 118/57
[2021-04-24 02:58] VITALS: BP 95/59
[2021-04-24 07:08] VITALS: BP 90/54
[2021-04-24 07:25] LABS: HEMATOCRIT 40.9 % (36.0-47.0); HEMOGLOBIN 13.4 g/dl (12.0-15.5); MEAN CORPUSCULAR HEMOGLOBIN 28.2 pg (27.0-33.0); MEAN CORPUSCULAR HGB CONC 32.8 g/dl (32.0-36.5); MEAN CORPUSCULAR VOLUME 85.9 fl (80.0-96.0); PLATELET COUNT, AUTOMATED 215 10^3/uL (150-450); RED BLOOD COUNT 4.76 10^6/uL (4.00-5.40); WHITE BLOOD COUNT 12.5 10^3/uL (4.0-10.0)
--- NOTE | 2021-04-24 07:56 | IPNPDOC ---
Text Note Date of Service The patient was seen on 04/24/21. NOTE Coco Allred is a 20 yo at 34+5 weeks gestation well known to me admitted for , prelabor rupture of membranes. She has completed a course of BTMZ and received three days worth of antibiotics. She has opted for expectant management rather than immediate delivery at this time. She was seen in her room this morning. Vitals - afebrile, normotensive a&o x3, no acute distress nonlabored breathing abdomen soft, nontender, gravid 25DEC PM NST reactive, no contractions Labs: WBC 12.5 today, was 12.0 on admission. Coco Allred is stable at this time without any evidence of infection. status remains reassuring. She has been counseled thoroughly regarding her option of proceeding with delivery or continuing with expectant management. Can continue with expectant management at this time per her wishes. Her saline lock is bothering her and as she is very stable we can take a break for a day. Plan: BID NSTs regular diet monitor for signs/symptoms of infection Keon Calero DO VS,[place], I+O VS, [place], I+O Laboratory Tests 04/24/21 07:11 Vital Signs Date Time Temp Pulse Resp B/P (MAP) Pulse Ox O2 Delivery O2 Flow Rate FiO2 04/24/21 07:08 98.1 77 16 90/54 (66) 04/24/21 02:58 Room Air KEON CALERO DO Apr 24, 2021 07:56
--- NOTE | 2021-04-24 08:04 | IPNPDOC ---
Text Note Date of Service The patient was seen on 04/23/21. NOTE Acceptance of Care Coco Allred is a 20 yo at 34+4 weeks gestation well known to me admitted for , prelabor rupture of membranes. She has completed a course of BTMZ and received three days worth of antibiotics. She has opted for expectant management rather than immediate delivery at this time. Vitals - afebrile, normotensive I did not examine the patient. 24DEC PM NST reactive, no contractions Labs: WBC stable, repeat CBC tomorrow AM Coco Allred is stable at this time without any evidence of infection. status remains reassuring. She has been counseled thoroughly regarding her option of proceeding with delivery or continuing with expectant management. Can continue with expectant management at this time per her wishes. Her saline lock is bothering her and as she is very stable we can take a break for a day. Plan: BID NSTs regular diet monitor for signs/symptoms of infection Keon Calero DO Late entry for date of service [id number] VS,Radha, I+O VS, Radha, I+O Laboratory Tests 04/24/21 07:11 Vital Signs Date Time Temp Pulse Resp B/P (MAP) Pulse Ox O2 Delivery O2 Flow Rate FiO2 04/24/21 07:08 98.1 77 16 90/54 (66) 04/24/21 02:58 Room Air KEON CALERO DO Apr 24, 2021 08:04
[2021-04-24 11:09] VITALS: BP 113/75
[2021-04-24 14:56] VITALS: BP 112/71
[2021-04-24 19:03] VITALS: BP 130/76
[2021-04-24] MEDS: PRENATAL VITAMINS CHEWABLE TABLET PO SCH (21:09)
[2021-04-24 22:41] VITALS: BP 110/64
[2021-04-25] VITALS (8 sets, daily range): BP systolic 104–139; BP diastolic 59–87
--- NOTE | 2021-04-25 06:20 | IPNPDOC ---
Text Note Date of Service The patient was seen on 04/25/21. NOTE Coco Allred is a 20 yo at 34+6 weeks gestation well known to me admitted for , prelabor rupture of membranes. She has completed a course of BTMZ and received three days worth of antibiotics. She has opted for expectant management rather than immediate delivery at this time. She was sleeping. I did not wake her up. Vitals - afebrile, normotensive General, sleeping comfortably 25DEC PM NST reactive, no contractions Labs: WBC 12.5 [id number], was 12.0 on admission. Coco Allred is stable at this time without any evidence of infection. status remains reassuring. She has been counseled thoroughly regarding her option of proceeding with delivery or continuing with expectant management. Can continue with expectant management at this time per her wishes. Plan: BID NSTs regular diet monitor for signs/symptoms of infection Keon Calero DO VS,Radha, I+O VS, Rdaha, I+O Laboratory Tests 04/24/21 07:11 Vital Signs Date Time Temp Pulse Resp B/P (MAP) Pulse Ox O2 Delivery O2 Flow Rate FiO2 04/25/21 03:08 97.9 75 16 104/63 (77) 04/24/21 02:58 Room Air l I&O- Last 24 Hours up to 6 AM 04/25/21 05:59 Intake Total 1800 ml Balance 1800 ml KEON CALERO DO Apr 25, 2021 06:20
[2021-04-25] MEDS: LR 1,000 ML IV SCH ×3 (07:29→15:18)
[2021-04-25] MEDS ORDERED: PERCOCET 5MG/325MG TAB PO PRN (12:40)
[2021-04-25] MEDS ORDERED: oxyCODONE 5MG TAB PO PRN (12:40)
[2021-04-25] MEDS ORDERED: ACETAMINOPHEN 500 MG TAB PO PRN ×2 (12:40→17:25)
--- NOTE | 2021-04-25 13:07 | IPNPDOC ---
Text Note Date of Service The patient was seen on 04/25/21. NOTE Coco Allred is a 20 yo at 34+6 weeks gestation who was admitted for , prelabor rupture of membranes about a week ago. She has completed a course of BTMZ and received three days worth of antibiotics. She is GBS negative. She has opted for expectant management rather than immediate delivery at this time. In the room Coco reported feeling increased contraction pain. She denies any bleeding. She endorses regular movement. Vitals - VSS, afebrile, normotensive, non tachycardic General - Sitting up in bed, AAOX3, NAD. Uncomfortable appearing when contractions occur. Abdomen - Soft, nondistended. No fundal tenderness. Palpated uterus during and in between contractions. NST for this morning reactive. Intermittent ctx on toco. Labs: WBC 12.5 [id number], was 12.0 on admission. Will put patient back on continuous monitoring to assess her contraction pattern. I offered PRN oral pain medication. Coco is unsure of whether she wants them or not. We again discussed expectant management vs proceeding with induction now and Coco desires to continue with expectant management at this time. She is afebrile and has no signs of infection and status has been reassuring so this plan is feasible. Should she develop signs of infection, or status becomes non reassuring, will proceed with IOL. Any and all pain control options are available to her in labor. All patient, , and friend questions answered to their satisfaction. Diogenes VS,Radha, I+O VS, Radha, I+O Vital Signs Date Time Temp Pulse Resp B/P (MAP) Pulse Ox O2 Delivery O2 Flow Rate FiO2 04/25/21 11:15 98.2 82 18 115/74 (88) 99 Room Air I&O- Last 24 Hours up to 6 AM 04/25/21 06:00 Intake Total 1800 ml Balance 1800 ml ABENA ADAME DO Apr 25, 2021 13:07
[2021-04-25] MEDS ORDERED: ONDANSETRON 4MG/2ML VIAL IV PRN (15:25)
--- NOTE | 2021-04-25 15:29 | IPNPDOC ---
Text Note Date of Service The patient was seen on 04/25/21. NOTE Coco reports significantly increased pain with contractions and pressure. Cervix: 6/90/-1. FHR tracing - Moderate variability. +early decels, +accels. Occasional rare late decel. Not persistent. Cat II tracing but overall reassuring. Coco is progressing on her own into active labor. Zofran for nausea. Continue continuous monitoring. Epidural if and when desired. NICU notified. Anticipate delivery this evening. All patient questions answered. Diogenes VS,Radha, I+O VS, Radha, I+O Vital Signs Date Time Temp Pulse Resp B/P (MAP) Pulse Ox O2 Delivery O2 Flow Rate FiO2 04/25/21 11:15 98.2 82 18 115/74 (88) 99 Room Air I&O- Last 24 Hours up to 6 AM 04/25/21 06:00 Intake Total 1800 ml Balance 1800 ml ABENA ADAME DO Apr 25, 2021 15:29
[2021-04-25 15:50] LABS: HEMATOCRIT 41.9 % (36.0-47.0); HEMOGLOBIN 13.7 g/dl (12.0-15.5); MEAN CORPUSCULAR HEMOGLOBIN 28.1 pg (27.0-33.0); MEAN CORPUSCULAR HGB CONC 32.7 g/dl (32.0-36.5); MEAN CORPUSCULAR VOLUME 85.9 fl (80.0-96.0); PLATELET COUNT, AUTOMATED 210 10^3/uL (150-450); RED BLOOD COUNT 4.88 10^6/uL (4.00-5.40); WHITE BLOOD COUNT 11.5 10^3/uL (4.0-10.0)
[2021-04-25 17:23] LABS: CORD GAS ABE V -2.3; CORD GAS HCO3 V 23.6 MEQ/L; CORD GAS O2 SAT V 67.5 %; CORD GAS PCO2 V 44.2 mmHg; CORD GAS PH V 7.345 UNITS; CORD GAS PO2 V 27.6 mmHg; CORD GAS SBC V 21.8 MEQ/L; CORD GAS TCO2 V 24.9 MEQ/L
[2021-04-25 17:25] LABS: CORD GAS ABE A -2.2; CORD GAS HCO3 A 25.3 MEQ/L; CORD GAS O2 SAT A 68.9 %; CORD GAS PCO2 A 53.3 mmHg; CORD GAS PH A 7.294 UNITS; CORD GAS PO2 A 29.3 mmHg; CORD GAS SBC A 21.9 MEQ/L; CORD GAS TCO2 A 26.9 MEQ/L
[2021-04-25] MEDS ORDERED: ACETAMINOPHEN TAB 650MG DOSE (2X325MG) PO PRN (17:25)
[2021-04-25] MEDS ORDERED: RHOGAM 300 MCG (1500 IU) INJ (J2790) IM SCH (17:25)
[2021-04-25] MEDS ORDERED: DOCUSATE SODIUM 100MG CAPSULE PO PRN (17:25)
[2021-04-25] MEDS ORDERED: DIBUCAINE 1% OINTMENT 30GM TOP PRN (17:25)
[2021-04-25] MEDS ORDERED: MEASLES,MUMPS,RUBELLA VACCINE INJ (MMR-II) (90707) SC SCH (17:25)
[2021-04-25] MEDS ORDERED: PROMETHAZINE 25 MG TAB PO PRN (17:25)
[2021-04-25] MEDS ORDERED: IBUPROFEN 600MG TAB PO PRN (17:25)
[2021-04-25] MEDS ORDERED: OXYTOCIN DRIP 30 UNITS in IV 1 EA IV SCH (17:25)
[2021-04-25] MEDS: IBUPROFEN 800 MG TAB PO PRN (17:51)
--- NOTE | 2021-04-25 17:54 | DNPDOC ---
[facility] Delivery Note Delivery Note DATE OF DELIVERY: 25Apr2021 at ~1700 PREDELIVERY DIAGNOSIS: 34+6 weeks gestation and ultimate spontaneous labor after PPROM POST DELIVERY DIAGNOSIS: Delivered. PROCEDURE: Spontaneous vaginal delivery OXYACETYLENE WELDER: Dr. Shetty ANESTHESIA: None ESTIMATED BLOOD LOSS: 200 FINDINGS: 2070 grams or 4 pounds 9 ounces female , nuchal cord X1, Score 8/9 DELIVERY SUMMARY: Coco is a 20 yo G1 now P1 who was admitted to L&D on for PPROM at 33+5 weeks gestation. She received BTMZ, 3 days of antibiotics, and underwent expectant management per her request. She then progressed into spontaneous active labor on 25Apr2021. She entered into 2nd stage of labor quickly and without analgesia. The NICU team was notified. With excellent effort over about 5 minutes of pushing her baby delivered. Presentation was HILARY with restitution to ROT. The left anterior shoulder delivered with gentle traction followed easily by the remainder of the body. There was a single nuchal cord that was delivered through and reduced manually. The was dried and stimulated and a bulb suction was used. The baby cried vigorously and was placed on the maternal abdomen. The three vessel umbilical cord was then clamped and cut by the FOB after appropriate time delay and under my direction. Cord gases were drawn. Third stage was completed with gentle traction on on the cord and it was productive of an intact placenta. The uterus was firmed with massage and pitocin was administered IV bolus. Inspection of the cervix, vagina, labia, and perineum revealed small, bilateral labial abrasions that were hemostatic and did not require repair. The fundus was palpated again and was firm. Sponge, instrument, and needle counts were correct X2. Mother and infant stable when I left the room. ABENA Peraza DO Apr 25, 2021 17:54
[2021-04-25] MEDS: PRENATAL VITAMINS CHEWABLE TABLET PO SCH (19:49)
[2021-04-26] MEDS: IBUPROFEN 800 MG TAB PO PRN ×2 (04:59→16:47)
[2021-04-26 05:53] VITALS: BP 125/68
--- NOTE | 2021-04-26 07:45 | IPNPDOC ---
Progress Note Date of Service: Apr 26, 2021 Progress Note Coco was sleeping soundly at the bedside this AM and I did not wake her. She is PPD#1 s/p uncomplicated yesterday early evening at 34+6 weeks gestation after PPROM and ultimate spontaneous labor. Vitals - VSS, afebrile, normotensive General - Sleeping soundly at the bedside, I did not wake her UO - appropriate No acute issues. Continue routine care. Anticipate DC home tomorrow. Diogenes VS, I&O, 24H, Radha Vital Signs/I&O Vital Signs Date Time Temp Pulse Resp B/P (MAP) Pulse Ox O2 Delivery O2 Flow Rate FiO2 04/26/21 05:53 98.3 75 16 125/68 (87) 04/25/21 18:59 98 Room Air I&O- Last 24 Hours up to 6 AM 04/26/21 06:00 Intake Total 1738 ml Output Total 800 ml Balance 938 ml Laboratory Data 24H LABS Laboratory Tests 2 04/25/21 15:35: Nucleated Red Blood Cells % (auto) 0.0 04/25/21 17:10: Cord Arterial Blood pH 7.294, Cord Arterial Blood PCO2 53.3, Cord Arterial Blood PO2 29.3, Cord Arterial Blood HCO3 25.3, Cord Arterial Blood Total CO2 26.9, Cord Arterial Blood Base Excess -2.2, Cord Arterial Base Excess (Standard 21.9, Cord Arterial Bld Oxygen Saturation 68.9, Cord Venous Blood pH 7.345, Cord Venous Blood PCO2 44.2, Cord Venous Blood PO2 27.6, Cord Venous Blood HCO3 23.6, Cord Venous Blood Total CO2 24.9, Cord Venous Base Excess (Actual) -2.3, Cord Venous Base Excess (Standard) 21.8, Cord Venous Blood Oxygen Saturation 67.5 CBC/BMP Laboratory Tests 04/25/21 15:35 Microbiology Microbiology 04/17/21 Group B Streptococcus Screen (NAGA) - Final, Complete ABENA ADAME DO Apr 26, 2021 07:44
[2021-04-26] MEDS ORDERED: PRENATAL VITAMINS CHEWABLE TABLET PO SCH (09:00)
[2021-04-26 18:00] VITALS: BP 127/70
[2021-04-26] MEDS: PRENATAL VITAMINS CHEWABLE TABLET PO SCH (20:14)
[2021-04-27] MEDS: IBUPROFEN 800 MG TAB PO PRN (04:47)
[2021-04-27 05:11] VITALS: BP 138/78
[2021-04-27] MEDS ORDERED: COLA100C5 PO (07:21)
[2021-04-27] MEDS ORDERED: IBUP-1022 PO (07:21)
--- NOTE | 2021-04-27 13:16 | DSES ---
DISCHARGE SUMMARY DATE OF ADMISSION: 04/17/2021 DATE OF DISCHARGE: 04/27/2021 BRIEF HISTORY: A 20-year-old 1 now para 1, admitted at 33 and 4 weeks with premature rupture of membranes documented and contractions. She was prophylactically treated with antibiotics for GBS status, neuro prophylaxis was performed and steroid complete. She spontaneously went into labor, delivered a livebirth male infant weighing 4 pounds, 9 ounces, 2070 grams, Apgars 8 and 9 at 1 and 5 minutes respectively. Arterial pH 7.20, base excess -2.2, venous pH 7.34, base excess -2.3. The cord was around the neck x1. No anesthesia was provided. She had a PPROM at 33 and 4 weeks of gestation, presently the baby is in the NICU for growing. PHYSICAL EXAMINATION: The rest of the examination is unremarkable. Normocephalic, atraumatic. Neck with full range of motion. Pupils are equal and reactive to light. Distal pulses are symmetric. No evidence of DVT, PE or superficial phlebitis. Chest is clear bilaterally to bases. No wheezes or rhonchi. No CVA tenderness. Abdomen is soft, four quadrant bowel sounds are noted. Uterus is 2 below, lochia is moderate, the perineum is intact. No rashes, lesions or pruritus. No arthralgias or myalgias. No complaint of joint pain. No complaint of cough, wheeze, shortness of breath or dyspnea on exertion. No nausea, vomiting, diarrhea, constipation or flatus. Blood pressure today is 138/78, respirations are 16, pulse is 71. Temperature is 98.7. Her admitting hemoglobin was 12.5, hematocrit 38.0 and platelets were 208,000. Discharge hemoglobin was 13.7 and hematocrit 41.9 and platelets are 210,000. In summary, we have a delivery of a livebirth male after appropriate optimizing for delivery. Patient and baby tolerating procedure well, baby will be in the NICU for several weeks to come. cc: [facility]
== END 2021-04-27 10:54 | disposition home or self-care (01) | DRG 807 ==
LOC: M LDO 10:25 → M LDI 12:05 → M OBS 04-25 18:45
PROVIDERS: ADMIT Obstetrics & Gynecology; ATTEND Obstetrics & Gynecology
PROC: 10E0XZZ Delivery of Products of Conception, External Approach (ICD-10-PCS; principal; 2021-04-25)
DX: O42.013 Preterm premature rupture of membranes, onset of labor within 24 hours of rupture, third trimester (principal); Z37.0 Single live birth; Z3A.33 33 weeks gestation of pregnancy; O69.82X0 Labor and delivery complicated by other cord entanglement, without compression, not applicable or unspecified